=== PATIENT | female | born 1965 | race Caucasian/White ===

== ENCOUNTER 2022-12-31 16:24 | Outpatient (REF) | payer MEDICAID, OTHER, SELFPAY ==
[2023-01-02 02:17] LABS: Rubella IgG Antibody 8.86 Index; Rubeola IgG (Measles) >300.00 AU/mL
[2023-01-03 08:53] LABS: TS Negative Control Passed; TS Panel A 0; TS Panel B 2; TS Positive Control Passed; TSpotTB Negative (Negative)
== END 2022-12-31 16:25 | disposition home or self-care (01) ==
LOC: HO.LAB 16:24
PROVIDERS: Visit Provider Internal Medicine
DX: Z00.00 Encounter for general adult medical examination without abnormal findings (principal); Z11.1 Encounter for screening for respiratory tuberculosis
CPT/HCPCS: 36415; 86481; 86735; 86762; 86765

== ENCOUNTER 2023-07-24 16:27 | Emergency (ER) | payer MEDICAID, OTHER, SELFPAY ==
--- NOTE | ~2023-07-24 | CT_ITS ---
EXAMINATION: CT ABDOMEN AND PELVIS WITH CONTRAST CLINICAL INFORMATION: Abdominal pain COMPARISON: None available. TECHNIQUE: Multidetector volumetric images were obtained from the superior aspect of the liver through the pubic symphysis following administration 85 mL of Omnipaque 350 intravenous contrast. Sagittal and coronal reformatted images were obtained on the technologist's workstation. Oral contrast: No This CT examination was performed using dose optimization techniques as appropriate, variously including the following: *Automated exposure control *Adjustment of mA and/or kV according to patient size (this includes techniques or standardized protocols for targeted exams where dose is matched to indication/reason for exam; i.e. extremities or head) *Use of iterative reconstruction technique DLP: 497 mGy-cm FINDINGS: LUNG BASES: The visualized lung bases are unremarkable. LIVER, GALLBLADDER, AND BILIARY TREE: The liver is normal in size, shape, and attenuation. No focal hepatic lesion or biliary ductal dilatation is present. The gallbladder is unremarkable with no evidence of radiopaque gallstones, gallbladder wall thickening, or obvious pericholecystic inflammatory changes. PANCREAS: Unremarkable. SPLEEN: Unremarkable. ADRENAL GLANDS: Unremarkable. KIDNEYS AND URETERS: Bilateral nephrograms are symmetric. No hydronephrosis or obstructing calculus identified. BLADDER: Unremarkable. GASTROINTESTINAL TRACT: Suture line is present along the stomach. No evidence of bowel obstruction or significant wall thickening. The appendix is unremarkable. No free fluid or free air is seen. ABDOMINAL WALL: No significant hernia is appreciated. LYMPH NODES: Normal. VASCULAR: Minimal atherosclerotic calcification. PELVIC VISCERA: Unremarkable. OSSEOUS STRUCTURES: Facet arthropathy of the lumbar spine. CT/CT abdomen pelvis w IV con IMPRESSION: No acute findings identified in the abdomen/pelvis.
[2023-07-24 17:16] VITALS: BP 113/50; PULSE 96; RESP 16; TEMP 36.5; O2SAT 98; BMI 25.6
--- NOTE | 2023-07-24 17:17 | ED_ITS ---
HPI - General Adult General Chief complaint: Nausea/Vomiting/Diarrhea Stated complaint: stomach/can't keep anything down Time Seen by Provider: 07/24/23 22:11 Related Data Previous Rx's ?Medication ?Instructions ?Recorded ondansetron 4 mg disintegrating 4 mg PO TID PRN nausea and 07/25/23 tablet vomiting 5 days #10 tabs Allergies Allergy/AdvReac Type Severity Reaction Status Date / Time No Known Allergies Allergy Verified 07/24/23 17:23 REPLACED BY [facility] Social History Social History Advance Directives: No Advance Directives Information Provided: No Do you have a plan to hurt others: No Plan Physical Exam ED Vital Signs: Vital Signs - 24 hr 07/24/23 17:16 07/24/23 22:19 Temperature 97.7 F 98 F Pulse Rate 96 85 Respiratory Rate 16 20 Blood Pressure 113/50 L 118/65 Pulse Oximetry 98 98 Oxygen Delivery Method Room Air Room Air BMI result Body Mass Index 25.6 Course Course Course Narrative: This is a Rapid Medical Examination (RME) performed by Nandini Gregg PA-C in triage. Full HPI, ROS, assessment and treatment plan per primary provider in the Main ED. 58 yo greenlandic speaking female here for eval of nausea without vomiting and diarrhea x3 days. reports 5-6 episodes of diarrhea/ day. admits to diarrhea every time she attempts to eat something. denies fever/ chills. denies recent travel outside [place]. denies recent abx. denies known sick contacts. hx of gastric bypass in 11 yrs ago. well appearing. ttp of epigastric region w/o rebound or guarding. Plan: labs, UA, viral serology, gi panel, cdiff ordered. Medications Administered Discontinued Medications Generic Name Dose Route Start Last Admin Trade Name Freq PRN Reason Stop Dose Admin Sodium Chloride 1,000 mls @ 999 mls/hr 07/24/23 22:45 07/24/23 22:48 Ns IV 07/24/23 23:45 999 mls/hr .Q1H1M AVI Administration Iohexol 85 ml 07/24/23 22:54 07/24/23 22:54 Iohexol 350 Mg/Ml 100 Ml Infus..Btl IV 07/24/23 22:55 85 ml ONCE ONE Administration Ondansetron HCl 4 mg 07/24/23 22:38 07/24/23 22:49 Ondansetron Hcl 4 Mg/2 Ml Vial IVPUSH 07/24/23 22:39 4 mg ONCE ONE Administration Medical Decision Making Lab Data 07/24/23 17:35 07/24/23 17:35 Labs: Lab Results 07/24/23 Range/Units 17:35 WBC 11.1 H (4.8-10.8) X10*3/uL RBC 5.30 (4.20-5.50) X10*6/uL Hgb 12.7 (12.0-16.0) g/dl Hct 39.4 (37.0-47.0) % MCV 74.3 L (80.0-98.0) fL MCH 24.0 L (27.0-33.0) pg MCHC 32.2 (31.0-35.0) g/dl RDW 13.8 (11.0-16.0) % Plt Count 311 (160-400) X10*3/uL MPV 11.4 (9.4-12.3) fL Immature Gran % (Auto) 0.4 (0.0-0.4) % Neut % (Auto) 48.7 (45-73) % Lymph % (Auto) 41.7 H (20-40) % [facility] % (Auto) 7.1 (2-11) % Eos % (Auto) 1.7 (0-4) % Baso % (Auto) 0.4 (0-2) % Lymph # (Auto) 4.6 (1.2-4.9) X10*3/uL [facility] # (Auto) 0.8 (0.1-1.2) X10*3/uL Eos # (Auto) 0.2 (0.0-0.4) X10*3/uL Baso # (Auto) 0.0 (0.0-0.2) X10*3/uL Abs Immat Gran (auto) 0.04 H (0.00-0.03) X10*3/uL Absolute Neuts (auto) 5.4 (2.0-8.3) x10*3/uL Absolute Nucleated RBC 0.000 (0.0-0.012) X10*3/uL Nucleated RBC % (auto) 0.0 (0.0-0.2) /100WBC Sodium 143 (135-145) mmol/L Potassium 4.9 (3.3-5.1) mmol/L Chloride 110 H (96-108) mmol/L Carbon Dioxide 26 (22-29) mmol/L Anion Gap 12 (12-20) BUN 13 (9-16) mg/dL Creatinine 0.56 (0.5-1.4) mg/dL Estim Creat Clear Calc 98.4 Estimated GFR > 60 Random Glucose 131 H (60-115) mg/dL Calcium 10.0 (8.4-10.2) mg/dL Magnesium 2.2 (1.6-2.6) mg/dL Total Bilirubin 0.2 (0.0-1.0) mg/dL AST 27 (5-31) U/L ALT 37 H (0-31) U/L Alkaline Phosphatase 168 H (39-117) U/L Total Protein 6.8 (6.5-8.0) g/dL Albumin 4.1 (3.5-5.0) g/dL Lipase 48 (8-78) U/L Influenza Type A (PCR) NEGATIVE (Negative) Influenza Type B (PCR) NEGATIVE (Negative) RSV RNA Qual (PCR) NEGATIVE (Negative) SARS-CoV-2 RNA (RT-PCR) NEGATIVE (Negative) Discharge Plan Discharge Clinical Impression: Gastroenteritis Patient Disposition: Home, Self-Care Instructions: Gastroenteritis (DC) Prescriptions: New ondansetron 4 mg tablet,disintegrating 4 mg PO TID PRN (Reason: nausea and vomiting) 5 Days Qty: 10 0RF Referrals: Physician,None [Primary Care Provider] - 07/29/23 Print Language: Togolese
[2023-07-24 17:42] LABS: MANUAL DIFF FLAG NO
[2023-07-24 17:44] LABS: Basophils Percent Auto 0.4 % (0-2); Eosinophils Absolute Auto 0.2 X10*3/uL (0.0-0.4); Eosinophils Percent Auto 1.7 % (0-4); Hematocrit 39.4 % (37.0-47.0); Hemoglobin 12.7 g/dl (12.0-16.0); Imm Gran Abs Auto 0.04 X10*3/uL (0.00-0.03); Imm Gran Pct Auto 0.4 % (0.0-0.4); Lymphocytes Absolute Auto 4.6 X10*3/uL (1.2-4.9); Lymphocytes Percent Auto 41.7 % (20-40); Mean Corpuscular HGB Conc 32.2 g/dl (31.0-35.0); Mean Corpuscular Volume 74.3 fL (80.0-98.0); Mean Platelet Volume 11.4 fL (9.4-12.3); Monocytes Absolute Auto 0.8 X10*3/uL (0.1-1.2); Monocytes Percent Auto 7.1 % (2-11); Neutrophils Absolute Auto 5.4 x10*3/uL (2.0-8.3); Neutrophils Percent Auto 48.7 % (45-73); Platelet Count 311 X10*3/uL (160-400); Red Cell Distribution Width 13.8 % (11.0-16.0); White Blood Count 11.1 X10*3/uL (4.8-10.8)
[2023-07-24 17:59] LABS: Alanine Aminotransferase 37 U/L (0-31); Albumin Level 4.1 g/dL (3.5-5.0); Alkaline Phosphatase 168 U/L (39-117); Anion Gap 12 (12-20); Aspartate Amino Transferase 27 U/L (5-31); Bilirubin Total 0.2 mg/dL (0.0-1.0); Blood Urea Nitrogen 13 mg/dL (9-16); Carbon Dioxide 26 mmol/L (22-29); Chloride 110 mmol/L (96-108); Creatinine Clr Calc Pharmacy 98.4; Estimated Glomerular Filt Rate > 60; Glucose Random 131 mg/dL (60-115); Lipase 48 U/L (8-78); Magnesium 2.2 mg/dL (1.6-2.6); Potassium 4.9 mmol/L (3.3-5.1); Sodium 143 mmol/L (135-145); Total Protein 6.8 g/dL (6.5-8.0)
[2023-07-24 18:23] LABS: Influenza A PCR NEGATIVE (Negative); Influenza B PCR NEGATIVE (Negative); Resp Syncy Virus RNA Qual PCR NEGATIVE (Negative); SARS COV2 PCR INHOUSE NEGATIVE (Negative)
[2023-07-24 22:19] VITALS: BP 118/65; PULSE 85; RESP 20; TEMP 36.6; O2SAT 98
--- NOTE | 2023-07-24 22:39 | ED_ITS ---
HPI - Nausea/Vomiting/Diarrhea General Chief complaint: Nausea/Vomiting/Diarrhea Stated complaint: stomach/can't keep anything down Time Seen by Provider: 07/24/23 22:11 Related Data Previous Rx's ?Medication ?Instructions ?Recorded ondansetron 4 mg disintegrating 4 mg PO TID PRN nausea and 07/25/23 tablet vomiting 5 days #10 tabs Allergies Allergy/AdvReac Type Severity Reaction Status Date / Time No Known Allergies Allergy Verified 07/24/23 17:23 [facility] Social History Social History Advance Directives: No Advance Directives Information Provided: No Do you have a plan to hurt others: No Plan Physical Exam 2 Vital Signs: Vital Signs: Last Vital Signs Temp 98 F 07/24/23 22:19 Pulse 85 07/24/23 22:19 Resp 20 07/24/23 22:19 BP 118/65 07/24/23 22:19 Pulse Ox 98 07/24/23 22:19 O2 Del Method Room Air 07/24/23 22:19 BMI result Body Mass Index 25.6 Medications Administered Discontinued Medications Generic Name Dose Route Start Last Admin Trade Name Freq PRN Reason Stop Dose Admin Sodium Chloride 1,000 mls @ 999 mls/hr 07/24/23 22:45 07/24/23 22:48 Ns IV 07/24/23 23:45 999 mls/hr .Q1H1M AVI Administration Iohexol 85 ml 07/24/23 22:54 07/24/23 22:54 Iohexol 350 Mg/Ml 100 Ml Infus..Btl IV 07/24/23 22:55 85 ml ONCE ONE Administration Ondansetron HCl 4 mg 07/24/23 22:38 07/24/23 22:49 Ondansetron Hcl 4 Mg/2 Ml Vial IVPUSH 07/24/23 22:39 4 mg ONCE ONE Administration Medical Decision Making Medical Decision Making [facility] Narrative: Patient had nausea vomiting diarrhea generalized malaise. Denies any recent travel no antibiotic use. Had gastric bypass over [address] scan of the abdomen pelvis showed no acute evidence of obstruction abscess perforation. Patient's electrolytes are normal. Will ask patient to drink lot of fluids hydrate. Zofran for nausea. In stable condition. Will discharge home Differential Diagnosis Differential Diagnoses: The differential diagnosis associated with the presentation includes Gastroenteritis, obstruction, perforation Lab Data [facility] Lab Attestation statement: I reviewed the patient's lab results. 07/24/23 17:35 07/24/23 17:35 Labs: Lab Results 07/24/23 Range/Units 17:35 WBC 11.1 H (4.8-10.8) X10*3/uL RBC 5.30 (4.20-5.50) X10*6/uL Hgb 12.7 (12.0-16.0) g/dl Hct 39.4 (37.0-47.0) % MCV 74.3 L (80.0-98.0) fL MCH 24.0 L (27.0-33.0) pg MCHC 32.2 (31.0-35.0) g/dl RDW 13.8 (11.0-16.0) % Plt Count 311 (160-400) X10*3/uL MPV 11.4 (9.4-12.3) fL Immature Gran % (Auto) 0.4 (0.0-0.4) % Neut % (Auto) 48.7 (45-73) % Lymph % (Auto) 41.7 H (20-40) % [place] % (Auto) 7.1 (2-11) % Eos % (Auto) 1.7 (0-4) % Baso % (Auto) 0.4 (0-2) % Lymph # (Auto) 4.6 (1.2-4.9) X10*3/uL [place] # (Auto) 0.8 (0.1-1.2) X10*3/uL Eos # (Auto) 0.2 (0.0-0.4) X10*3/uL Baso # (Auto) 0.0 (0.0-0.2) X10*3/uL Abs Immat Gran (auto) 0.04 H (0.00-0.03) X10*3/uL Absolute Neuts (auto) 5.4 (2.0-8.3) x10*3/uL Absolute Nucleated RBC 0.000 (0.0-0.012) X10*3/uL Nucleated RBC % (auto) 0.0 (0.0-0.2) /100WBC Sodium 143 (135-145) mmol/L Potassium 4.9 (3.3-5.1) mmol/L Chloride 110 H (96-108) mmol/L Carbon Dioxide 26 (22-29) mmol/L Anion Gap 12 (12-20) BUN 13 (9-16) mg/dL Creatinine 0.56 (0.5-1.4) mg/dL Estim Creat Clear Calc 98.4 Estimated GFR > 60 Random Glucose 131 H (60-115) mg/dL Calcium 10.0 (8.4-10.2) mg/dL Magnesium 2.2 (1.6-2.6) mg/dL Total Bilirubin 0.2 (0.0-1.0) mg/dL AST 27 (5-31) U/L ALT 37 H (0-31) U/L Alkaline Phosphatase 168 H (39-117) U/L Total Protein 6.8 (6.5-8.0) g/dL Albumin 4.1 (3.5-5.0) g/dL Lipase 48 (8-78) U/L Influenza Type A (PCR) NEGATIVE (Negative) Influenza Type B (PCR) NEGATIVE (Negative) RSV RNA Qual (PCR) NEGATIVE (Negative) SARS-CoV-2 RNA (RT-PCR) NEGATIVE (Negative) Independent Interpretation I performed an independent interpretation of an: CT Scan (Normal grossly no obstruction) Radiology Impression Discussion of test interpretation with radiology: I have reviewed the radiologist's reading. Prescription Management I considered prescription management with: Pain Medication Not needed Discharge Plan Discharge Clinical Impression: Gastroenteritis Patient Disposition: Home, Self-Care Instructions: Gastroenteritis (DC) Prescriptions: New ondansetron 4 mg tablet,disintegrating 4 mg PO TID PRN (Reason: nausea and vomiting) 5 Days Qty: 10 0RF Referrals: Physician,None [Primary Care Provider] - 07/29/23 Print Language: Frisian
[2023-07-24] MEDS: 0.9 % Sodium Chloride 1,000 ML 999 ML IV (22:48)
[2023-07-24] MEDS: ondansetron HCL 4 MG/2 ML VIAL IVPUSH (22:49)
--- NOTE | 2023-07-24 22:51 | PC.NURSE ---
#20 IV L-AC, IV fluids started and zofran administered. Pt going to CT
[2023-07-24] MEDS: iohexoL 350 MG/ML 100 ML INFUS..BTL 85 ML IV (22:54)
[2023-07-25 00:54] VITALS: BP 136/70; PULSE 104; RESP 14; TEMP 36.7; O2SAT 99
[2023-07-25 01:21] VITALS: BP 136/70; PULSE 104; RESP 14; TEMP 36.6
== END 2023-07-25 01:05 | disposition home or self-care (01) ==
PROVIDERS: Physician Assistant Medical; Emergency Provider Emergency Medicine Emergency Medical Services
DX: K52.9 Noninfective gastroenteritis and colitis, unspecified (principal); R11.2 Nausea with vomiting, unspecified; Z79.899 Other long term (current) drug therapy; Z20.822 Contact with and (suspected) exposure to COVID-19
CPT/HCPCS: 0241U; 74177; 80053; 83690; 83735; 85025; 96361; 96374; 99284; J2405; Q9967